=== PATIENT | male | born 1995 | race American Indian/Alaskan Native ===

== ENCOUNTER 2017-12-14 17:04 | Emergency (ER) | payer OTHER ==
[2017-12-14 17:36] VITALS: BP 150/99
== END 2017-12-15 04:57 | disposition left against medical advice (07) ==
LOC: ED 17:04
DX: R07.9 Chest pain, unspecified (principal); R50.9 Fever, unspecified; Z53.21 Procedure and treatment not carried out due to patient leaving prior to being seen by health care provider

== ENCOUNTER 2019-02-27 20:00 | Emergency (ER) | payer OTHER ==
[~2019-02-27 20:00] MED LIST: ADRENALIN ONE
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
== END 2019-02-27 23:00 ==
LOC: ED 20:00
DX: S11.94XA Puncture wound with foreign body of unspecified part of neck, initial encounter (principal); I46.9 Cardiac arrest, cause unspecified; W34.00XA Accidental discharge from unspecified firearms or gun, initial encounter; Y93.89 Activity, other specified; Y92.89 Other specified places as the place of occurrence of the external cause; Y99.8 Other external cause status
CPT/HCPCS: 31500; 92950; 99285; J0171